=== PATIENT | female | born 1965 | race Caucasian/White ===

== ENCOUNTER 2019-04-27 06:26 | Day surgery (SDC) | payer OTHER ==
[2019-04-26 09:19] VITALS: BMI 27.4
--- NOTE | 2019-04-26 16:00 | HP ---
HISTORY OF PRESENT ILLNESS: Ms. Agudelo is here today to discuss roughly four and half months worth of right-sided lower back pain with associated L5 radicular pattern of pain which is constant and occasionally tingles as well. She denies numbness or weakness and has no prior history of other back problems. She does state that her pains are somewhat better today and they have been dating back to late December. She has treated this with marginal success with chiropractics, home exercises as well as medications. Sitting and standing for any extended period of time make this the most severe. MRI taken from [facility] reveals well appearing spine other than at L4-5 where she has a moderate to severe lateral recess, no stenosis that would well explain L5 radiculopathy. There was notable distraction of joints as well as a left-sided extra-spinal synovial cyst which potentially could exhibit concern for instability at this level. She denies any or all other left lower extremity symptoms. PAST MEDICAL HISTORY: Significant for asthma. CURRENT MEDICATIONS: Gabapentin, tramadol, chlorzoxazone, and Extra-Strength Tylenol. ALLERGIES: NO KNOWN DRUG ALLERGIES. PAST SURGICAL HISTORY: Hysterectomy, rotator cuff repair with unspecified laterality. PHYSICAL EXAMINATION: GENERAL: The patient is alert and oriented x3. Gait is severely antalgic. EXTREMITIES: Lower extremity exam is normal. Positive straight leg raise. ASSESSMENT: Lumbar radiculopathy. PLAN: Dr. Canas met with the patient, reviewed imaging, advocated for a right L4-5 decompression. He explained to the patient the risks, benefits, and alternatives to the procedure. The patient expressed understanding and elected to move forward with surgery as discussed. I do believe the patient is mentally competent and capable of making medical decisions for herself. We will move forward with surgery as planned. Job ID: [id number]
[2019-04-27] MEDS ORDERED: Fentanyl 100 MCG/2 ML VIAL ONE ×3 (06:39→10:26)
[2019-04-27] MEDS ORDERED: Thrombin 5000 UNITS/5 ML VIAL ONE (06:46)
[2019-04-27] MEDS ORDERED: Bupivacaine PF 0.5% 30 ML VIAL ONE (06:46)
[2019-04-27] MEDS ORDERED: Midazolam HCl 2 mg/2 ml Vial ONE (08:13)
[2019-04-27] MEDS ORDERED: PROPOFOL 200 MG/20 ML VIAL ONE (10:41)
[2019-04-27] MEDS ORDERED: Glycopyrrolate 0.2 MG/ML 5 ML SYRINGE ONE (10:41)
[2019-04-27] MEDS ORDERED: Ondansetron PF 4 MG/2 ML Vial ONE (10:41)
[2019-04-27] MEDS ORDERED: Rocuronium Bromide 10 MG/ML (10ML VIAL) ONE (10:41)
[2019-04-27] MEDS ORDERED: Dexamethasone 20 MG/5 ML VIAL ONE (10:41)
[2019-04-27] MEDS ORDERED: Ketorolac Tromethamine 30 MG/ML VIAL ONE (10:41)
[2019-04-27] MEDS ORDERED: Morphine 2 MG/ML SYRINGE ONE (11:20)
[2019-04-27] MEDS ORDERED: HYDROcodone/Acetaminophen 5/325 mg Tablet ONE (11:32)
--- NOTE | 2019-04-27 15:12 | OP ---
DATE OF PROCEDURE: 04/27/2019 COORDINATING PRODUCER: Stuart Esteban PA-C INDICATION: Pain. DIAGNOSES: Right L5 radiculopathy, right L4-L5 lateral recess stenosis. PROCEDURES PERFORMED: Right L4-L5 hemilaminectomy, medial facetectomy, and decompression. ANESTHESIA: General. DESCRIPTION OF PROCEDURE: The patient was brought into the operating room and placed under general anesthesia. She was flipped from the supine to prone position on the operating room table. A linear incision was planned over the L4-L5 segment. After prepping and draping and after an appropriate operative pause, the incision was created. The soft tissues were swept right of midline. A self-retaining retractor was placed. A C-arm image was obtained to confirm the appropriate level. A high-speed cutting drill bit as well as 2 and 3 mm Kerrisons were then used to perform a laminectomy along the inferior aspect of L4 and the superior aspect of L5. The laminectomy was extended laterally to encompass the medial third of the facet joint in order to further decompress the lateral recess. After completing the decompression, the wound was irrigated. Hemostasis was maintained throughout. The wound was then closed in anatomic layers, and a pressure dressing was applied. There were no known procedural complications. Job ID: [id number]
== END 2019-04-27 13:15 | disposition home or self-care (01) ==
LOC: SDC 06:26
PROVIDERS: ATTEND Neurological Surgery
PROC: 01NB0ZZ Release Lumbar Nerve, Open Approach (ICD-10-PCS; principal; 2019-04-27)
DX: M48.061 Spinal stenosis, lumbar region without neurogenic claudication (principal); M54.16 Radiculopathy, lumbar region; M71.38 Other bursal cyst, other site; J45.909 Unspecified asthma, uncomplicated
CPT/HCPCS: 76000; 93005; 93010; J0690; J1100; J1885; J2250; J2270; J2405; J2704; J3010; S0020